=== PATIENT | male | born 1950 | race Caucasian/White ===

== ENCOUNTER 2019-09-22 10:38 | Emergency (ER) | payer OTHER ==
[~2019-09-22] VITALS: Ht 190.5 cm; Wt 150.0 kg
[2019-09-22 10:47] VITALS: Ht 190.5 cm; Wt 150.0 kg
[2019-09-22 11:10] LABS: BASOPHILS 0.6 % (0-2); EOSINOPHILS 5.5 % (0-7); HEMOGLOBIN 14.8 g/dL (13.5-17.5); IMMATURE GRANULOCYTES 0.8 % (0-5); LYMPHOCYTES 32.1 % (15-50); MCH 30.8 pg (26.0-34.0); MCHC 34.4 g/dL (31.0-37.0); MCV 89.4 fL (80.0-100.0); MEAN PLATELET VOLUME 9.5 fL (7.4-10.4); MONOCYTES 6.3 % (2-11); NEUTROPHILS 54.7 % (40-80); PLATELET COUNT 149 10x3/uL (130-400); RBC 4.81 10x6/uL (4.20-6.10); RDW 13.4 % (11.5-14.5); WBC 6.5 10x3/uL (4.8-10.8)
[2019-09-22 11:16] LABS: CALC OSMOLALITY 275 mosm/kg (275-300); CALCIUM 8.4 mg/dL (8.5-10.1); CARBON DIOXIDE 30.4 mmol/L (21.0-32.0); CHLORIDE - SERUM 102 mmol/L (98-107); CREATININE - SERUM 1.2 mg/dL (0.6-1.3); GLUCOSE 102 mg/dL (74-106); POTASSIUM - SERUM 4.1 mmol/L (3.5-5.1); SODIUM 137 mmol/L (136-145); UREA NITROGEN 19 mg/dL (7-18); eGFR NON AFRICAN AMERICAN 64 mL/min (90-120)
[2019-09-22 11:33] LABS: ALBUMIN 3.7 g/dL (3.4-5.0); ALKALINE PHOSPHATASE 77 U/L (30-120); ALT (SGPT) 26 U/L (10-68); BILIRUBIN - TOTAL 0.52 mg/dL (0.2-1.3); CKMB 0.9 U/L (0.0-3.6); CREATINE KINASE 47 UL (21-232); PROTEIN - SERUM 7.8 g/dL (6.4-8.2); TROPONIN-I 0.048 ng/mL (0.000-0.060)
[2019-09-22 11:41] LABS: APTT 25.5 SECONDS (22.8-39.4); PROTIME 13.2 SECONDS (11.6-15.0)
[2019-09-22 13:35] VITALS: BP 168/125
== END 2019-09-22 13:35 | disposition home or self-care (01) ==
LOC: D.ER 10:38
PROVIDERS: Family Medicine
DX: I10 Essential (primary) hypertension (principal); I48.91 Unspecified atrial fibrillation; R79.89 Other specified abnormal findings of blood chemistry; R06.00 Dyspnea, unspecified; R60.0 Localized edema; Z79.1 Long term (current) use of non-steroidal anti-inflammatories (NSAID); Z53.29 Procedure and treatment not carried out because of patient's decision for other reasons